=== PATIENT | female | born 1995 | race Two or more races ===

== ENCOUNTER 2016-11-30 23:50 | Inpatient (IN) | payer SELFPAY ==
[~2016-11-30] VITALS: Ht 154.9 cm; Wt 78.9 kg
[~2016-11-30 23:50] MED LIST: PREN27TA7 OR
[2016-12-01] MEDS ORDERED: PENICILLIN G POT 5MIL/D5 50ML 50 ML IV ONE (00:34)
[2016-12-01] MEDS ORDERED: LACT. RINGERS/OXYTOCIN 20UNITS 1,000 ML IV SCH (00:44)
[2016-12-01] MEDS ORDERED: DERMOPLAST 60ML BOTTLE TOP PRN (00:45)
[2016-12-01] MEDS ORDERED: METHYLERGONOVINE MALEATE 0.2 MG/ML AMP IM PRN (00:45)
[2016-12-01] MEDS ORDERED: WITCH HAZEL-GLYCERIN PAD TOP PRN (00:45)
[2016-12-01] MEDS ORDERED: PHISODERM TOP SOLN 240ML BTL TOP PRN (00:45)
[2016-12-01] MEDS ORDERED: LIDOCAINE 1% HCL (LOCAL ANESTH.) INJ 20ML MDV IJ ONE (00:45)
[2016-12-01] MEDS ORDERED: LIDOCAINE 2%HCL (LOCAL ANESTH.) INJ 20ML MDV ONE (00:50)
[2016-12-01] MEDS ORDERED: WITCH HAZEL-GLYCERIN PAD TOP ONE (00:50)
[2016-12-01] MEDS ORDERED: PHISODERM TOP SOLN 240ML BTL TOP ONE (00:50)
[2016-12-01] MEDS ORDERED: DERMOPLAST 60ML BOTTLE TOP ONE (00:50)
[2016-12-01] MEDS ORDERED: LACT. RINGERS/OXYTOCIN 20UNITS 1,000 ML IV ONE (00:50)
[2016-12-01] MEDS ORDERED: METHYLERGONOVINE MALEATE 0.2 MG/ML AMP IM ONE (00:51)
[2016-12-01 01:19] LABS: Basophils # (auto) 0 uL; Basophils % (auto) 0.2 % (0.0-2.0); CONDITION Y; DEFINITIVE SEE PRINTOUT; Eosinophils # (auto) 0 uL; Eosinophils % (auto) 0.2 % (0.0-7.0); Hematocrit 33.5 % (36.0-46.0); Lymphocytes # (auto) 3.5 uL; Lymphocytes % (auto) 30.4 % (10.0-50.0); Mean Corpuscular Hemoglobin 24.1 pg (28.0-32.0); Mean Corpuscular Hgb Conc. 32.7 g/dL (32.0-36.0); Mean Corpuscular Volume 73.8 fL (80.0-100.0); Mean Platelet Volume 8.6 fL (7.4-10.4); Monocytes # (auto) 0.7 uL; Monocytes % (auto) 5.9 % (0.0-12.0); Neutrophils # (auto) 7.2 uL; Neutrophils % (auto) 63.3 % (37.0-80.0); Platelet Count (auto) 296 10^3/uL (140-450); Red Cell Distribution Width 16.4 % (11.6-16.0); White Blood Cell 11.4 10^3/uL (4.4-10.8)
[2016-12-01 01:29] LABS: INR 0.91 (0.9-1.15); Partial Thromboplastin Time 26.8 sec (22.64-33.71); Prothrombin Time 9.9 sec (9.37-12.3)
[2016-12-01 01:31] LABS: Albumin 2.6 g/dL (3.4-5.0); BUN/Creatinine Ratio 13.6; Potassium 3.8 mmol/L (3.5-5.1)
[2016-12-01 01:34] LABS: Bilirubin, Total 0.4 mg/dL (0.2-1.0); Total Protein 7.3 g/dL (6.4-8.2)
[2016-12-01] MEDS ORDERED: IBUPROFEN 600 MG TAB PO ONE (02:26)
[2016-12-01] MEDS ORDERED: LACT. RINGERS/OXYTOCIN 20UNITS 500 ML IV ONE (02:28)
[2016-12-01] MEDS: LACTATED RINGER'S 1,000 ML IV SCH ×3 (03:39→16:44)
[2016-12-01] MEDS: PENICILLIN G POTASSIUM 2,500,000 UNITS in D5W 5% 50 ML IV SCH ×4 (04:45→16:45)
[2016-12-01 08:00] VITALS: BP 109/53
[2016-12-01 12:00] VITALS: BP 100/67
[2016-12-01] MEDS: IBUPROFEN 600 MG TAB PO PRN ×2 (12:47→20:06)
[2016-12-01 16:03] VITALS: BP 106/59
[2016-12-01 19:45] VITALS: BP 112/80
[2016-12-01] MEDS ORDERED: ACETAMINOPHEN 325 MG TAB PO ONE (23:13)
[2016-12-01] MEDS ORDERED: ACETAMINOPHEN 650 mg PER 20 mL UD GT PRN (23:15)
[2016-12-01 23:30] VITALS: BP 98/53
[2016-12-02] MEDS ORDERED: ACETAMINOPHEN 325 MG TAB PO PRN
[2016-12-02 02:55] VITALS: BP 98/53
[2016-12-02 08:08] VITALS: BP 93/53
[2016-12-02 12:15] VITALS: BP 96/60
== END 2016-12-02 13:05 | disposition home or self-care (01) | DRG 775 ==
LOC: LDRP 23:50 → OBSVTOIN 23:51 → LDRP 12-01 00:14
PROVIDERS: ADMIT Obstetrics & Gynecology; ATTEND Obstetrics & Gynecology
PROC: 10E0XZZ Delivery of Products of Conception, External Approach (ICD-10-PCS; principal; 2016-12-01)
PROC: 0UQMXZZ Repair Vulva, External Approach (ICD-10-PCS; 2016-12-01)
PROC: 10907ZC Drainage of Amniotic Fluid, Therapeutic from Products of Conception, Via Natural or Artificial Opening (ICD-10-PCS; 2016-12-01)
DX: O70.0 First degree perineal laceration during delivery (principal); Z37.0 Single live birth; Z3A.40 40 weeks gestation of pregnancy
CPT/HCPCS: 36415; 59025; 59409; 80053; 81002; 85025; 85610; 85730; 86850; 86900; 86901; 96361; 96366; G0378; J2540; J2590; J7060

== ENCOUNTER 2017-04-15 03:11 | Emergency (ER) | payer MEDICAID ==
[~2017-04-15] VITALS: Ht 157.5 cm; Wt 73.9 kg
[2017-04-15 04:08] LABS: Basophils # (auto) 0 uL; Basophils % (auto) 0.2 % (0.0-2.0); Eosinophils # (auto) 0.1 uL; Eosinophils % (auto) 1.1 % (0.0-7.0); Hematocrit 38.4 % (36.0-46.0); Hemoglobin 12.6 g/dL (12.2-16.2); Lymphocytes # (auto) 4.6 uL; Lymphocytes % (auto) 41.5 % (10.0-50.0); Mean Corpuscular Hemoglobin 27.4 pg (28.0-32.0); Mean Corpuscular Hgb Conc. 32.9 g/dL (32.0-36.0); Mean Corpuscular Volume 83.5 fL (80.0-100.0); Mean Platelet Volume 7.7 fL (6.9-10.8); Monocytes # (auto) 0.7 uL; Monocytes % (auto) 6.5 % (0.0-12.0); Neutrophils # (auto) 5.6 uL; Neutrophils % (auto) 50.7 % (37.0-80.0); Nucleated Red Blood Cells % 0.2 %; Platelet Count (auto) 279 10^3/uL (140-450); Red Cell Distribution Width 13.1 % (11.8-14.3); White Blood Cell 11.1 10^3/uL (4.4-10.8)
[2017-04-15 04:28] LABS: Anion Gap 11 (5-15); BUN/Creatinine Ratio 18.4; Blood Urea Nitrogen 16 mg/dL (7-18); Calcium 8.7 mg/dL (8.5-10.1); Carbon Dioxide 23 mmol/L (21-32); Chloride 106 mmol/L (98-107); GFR African American 106 mL/min; GFR Non-African American 87 mL/min; Glucose 151 mg/dL (74-106); Potassium 3.2 mmol/L (3.5-5.1); Sodium 140 mmol/L (136-145)
[2017-04-15 04:35] LABS: Acetaminophen < 2.0 ug/mL (10-30); Salicylate < 1.7 mg/dL (2.8-20.0)
[2017-04-15 08:39] VITALS: BP 119/74
== END 2017-04-15 12:31 | disposition left against medical advice (07) ==
LOC: ER 03:17
DX: F12.10 Cannabis abuse, uncomplicated (principal); Z53.21 Procedure and treatment not carried out due to patient leaving prior to being seen by health care provider
CPT/HCPCS: 36415; 80048; 80320; 80329; 84702; 85025

== ENCOUNTER 2017-11-29 23:03 | Emergency (ER) | payer MEDICAID ==
[~2017-11-29] VITALS: Ht 154.9 cm; Wt 71.8 kg
[2017-11-29 23:56] LABS: Basophils # (auto) 0 uL; Basophils % (auto) 0.1 % (0.0-2.0); Eosinophils # (auto) 0.2 uL; Eosinophils % (auto) 1.9 % (0.0-7.0); Hemoglobin 12.2 g/dL (12.2-16.2); Lymphocytes # (auto) 3.5 uL; Lymphocytes % (auto) 34.2 % (10.0-50.0); Mean Corpuscular Hemoglobin 28.4 pg (28.0-32.0); Mean Corpuscular Hgb Conc. 33.9 g/dL (32.0-36.0); Monocytes # (auto) 0.6 uL; Monocytes % (auto) 5.7 % (0.0-12.0); Neutrophils % (auto) 58.1 % (37.0-80.0); Platelet Count (auto) 235 10^3/uL (140-450); Red Blood Cells 4.29 10^6/uL (4.0-5.20); Red Cell Distribution Width 14.4 % (11.8-14.3); White Blood Cell 10.4 10^3/uL (4.4-10.8)
[2017-11-30 00:14] LABS: Alanine Aminotransferase 8 U/L (13-56); Albumin 2.9 g/dL (3.4-5.0); Anion Gap 10 (5-15); Aspartate Aminotransferase 12 U/L (15-37); BUN/Creatinine Ratio 12.5; Blood Urea Nitrogen 8 mg/dL (7-18); Calcium 8.5 mg/dL (8.5-10.1); Carbon Dioxide 22 mmol/L (21-32); Chloride 107 mmol/L (98-107); GFR African American 151 mL/min; GFR Non-African American 125 mL/min; Glucose 105 mg/dL (74-106); Magnesium 1.9 mg/dL (1.6-2.6); Potassium 3.9 mmol/L (3.5-5.1); Sodium 139 mmol/L (136-145)
[2017-11-30 00:19] LABS: Alkaline Phosphatase 59 U/L (45-117); Bilirubin, Total 0.2 mg/dL (0.2-1.0); Total Protein 7.4 g/dL (6.4-8.2)
[2017-11-30 06:07] VITALS: BP 92/41
== END 2017-11-30 06:53 | disposition home or self-care (01) ==
LOC: ER 23:06
DX: O26.892 Other specified pregnancy related conditions, second trimester (principal); F45.8 Other somatoform disorders; Z3A.16 16 weeks gestation of pregnancy
CPT/HCPCS: 36415; 36600; 80053; 82805; 83735; 84484; 84702; 85025; 93005

== ENCOUNTER 2018-04-14 10:55 | Observation (INO) | payer MEDICAID ==
[~2018-04-14] VITALS: Ht 157.5 cm; Wt 77.6 kg
[2018-04-14] MEDS ORDERED: LACTATED RINGER'S 1,000 ML IV SCH (11:46)
[2018-04-14] MEDS ORDERED: LACT. RINGERS/OXYTOCIN 20UNITS 1,000 ML IV SCH (11:46)
[2018-04-14] MEDS ORDERED: LIDOCAINE 2%HCL (LOCAL ANESTH.) INJ 20ML MDV ONE (11:54)
[2018-04-14] MEDS ORDERED: LACT. RINGERS/OXYTOCIN 20UNITS 1,000 ML IV ONE (11:55)
[2018-04-14] MEDS ORDERED: DERMOPLAST 60ML BOTTLE TOP PRN (12:00)
[2018-04-14] MEDS ORDERED: WITCH HAZEL-GLYCERIN PAD TOP PRN (12:00)
[2018-04-14] MEDS ORDERED: METHYLERGONOVINE MALEATE 0.2 MG/ML AMP IM PRN (12:00)
[2018-04-14] MEDS ORDERED: PHISODERM TOP SOLN 240ML BTL TOP PRN (12:00)
[2018-04-14] MEDS ORDERED: LIDOCAINE 2%HCL (LOCAL ANESTH.) INJ 20ML MDV ID ONE (12:00)
[2018-04-14] MEDS ORDERED: NALBUPHINE HCL 10 MG/1ml INJECTION IV PRN (12:00)
[2018-04-14] MEDS: IBUPROFEN 600 MG TAB PO PRN ×2 (12:42→19:40)
[2018-04-14 12:58] LABS: Basophils # (auto) 0 uL; Eosinophils # (auto) 0 uL; Hemoglobin 10.9 g/dL (12.2-16.2); Mean Corpuscular Volume 72.8 fL (80.0-100.0); Monocytes # (auto) 0.5 uL; Monocytes % (auto) 4.4 % (0.0-12.0)
[2018-04-14 13:00] LABS: Basophils % (auto) 0.2 % (0.0-2.0); Eosinophils % (auto) 0.1 % (0.0-7.0); Hematocrit 34.9 % (36.0-46.0); Lymphocytes # (auto) 2.2 uL; Lymphocytes % (auto) 21.1 % (10.0-50.0); Mean Corpuscular Hemoglobin 22.7 pg (28.0-32.0); Mean Corpuscular Hgb Conc. 31.2 g/dL (32.0-36.0); Neutrophils # (auto) 7.6 uL; Neutrophils % (auto) 74.2 % (37.0-80.0); Nucleated Red Blood Cells % 0.1 %; Platelet Count (auto) 223 10^3/uL (140-450); Red Cell Distribution Width 16.9 % (11.8-14.3); White Blood Cell 10.2 10^3/uL (4.4-10.8)
[2018-04-14 13:04] LABS: Albumin 2.6 g/dL (3.4-5.0); Calcium 8.1 mg/dL (8.5-10.1); Potassium 3.8 mmol/L (3.5-5.1)
[2018-04-14 13:07] LABS: BUN/Creatinine Ratio 14.3; Bilirubin, Total 0.2 mg/dL (0.2-1.0); Total Protein 6.7 g/dL (6.4-8.2)
[2018-04-14 13:12] LABS: INR 0.88 (0.9-1.15); Partial Thromboplastin Time 26.3 sec (23.78-33.04); Prothrombin Time 9.5 sec (9.27-12.13)
[2018-04-14 15:02] VITALS: BP 115/55
[2018-04-14 19:10] VITALS: BP 103/52
[2018-04-14 22:52] VITALS: BP 101/52
[2018-04-15 02:53] VITALS: BP 117/56
[2018-04-15 06:42] VITALS: BP 108/63
[2018-04-15] MEDS: IBUPROFEN 600 MG TAB PO PRN ×2 (07:53→13:26)
[2018-04-15 11:00] VITALS: BP 108/53
[2018-04-15 15:30] VITALS: BP 111/70
== END 2018-04-15 16:05 | disposition home or self-care (01) | DRG 560 ==
LOC: LDRP 10:55
PROVIDERS: ADMIT Specialist; ATTEND Specialist
DX: O80 Encounter for full-term uncomplicated delivery (principal); Z37.0 Single live birth
CPT/HCPCS: 36415; 59025; 80053; 81002; 85025; 85610; 85730; 86850; 86900; 86901; G0378; J2590; 59409; 96365; 96366

== ENCOUNTER 2018-08-23 15:43 | Emergency (ER) | payer MEDICAID ==
[~2018-08-23] VITALS: Ht 154.9 cm; Wt 68.0 kg
[2018-08-23 17:00] VITALS: BP 90/71
== END 2018-08-23 18:19 | disposition home or self-care (01) ==
LOC: ER 15:51
DX: F41.1 Generalized anxiety disorder (principal)

== ENCOUNTER 2018-08-26 17:15 | Emergency (ER) | payer MEDICAID ==
[~2018-08-26] VITALS: Ht 154.9 cm; Wt 71.7 kg
[2018-08-26 18:47] VITALS: BP 136/59
[2018-08-26 20:16] LABS: Basophils # (auto) 0 uL; Basophils % (auto) 0.2 % (0.0-2.0); Eosinophils # (auto) 0 uL; Hematocrit 39.4 % (36.0-46.0); Hemoglobin 12.9 g/dL (12.2-16.2); Lymphocytes # (auto) 2.4 uL; Mean Corpuscular Hemoglobin 27.5 pg (28.0-32.0); Mean Corpuscular Hgb Conc. 32.8 g/dL (32.0-36.0); Mean Corpuscular Volume 83.7 fL (80.0-100.0); Monocytes # (auto) 0.3 uL; Monocytes % (auto) 3.8 % (0.0-12.0); Neutrophils # (auto) 6.3 uL; Nucleated Red Blood Cells % 0.1 %; Platelet Count (auto) 299 10^3/uL (140-450); Red Blood Cells 4.71 10^6/uL (4.0-5.20); Red Cell Distribution Width 13.3 % (11.8-14.3); White Blood Cell 9.1 10^3/uL (4.4-10.8)
[2018-08-26 20:32] LABS: Urine Pregnacy Test Negative (Negative)
[2018-08-26 20:36] LABS: Urine Bacteria NONE SEEN /hpf (None Seen); Urine Blood Negative /uL (Negative); Urine Mucus FEW (None Seen); Urine WBC 16 /hpf (0 - 5)
[2018-08-26 20:37] LABS: Albumin 4.2 g/dL (3.4-5.0); Anion Gap 8 (5-15); Blood Alcohol < 3.0 mg/dL (0-5); Blood Urea Nitrogen 11 mg/dL (7-18); CRP High Sensitivity 0.08 mg/dL (< 0.3); Calcium 9.3 mg/dL (8.5-10.1); Carbon Dioxide 25 mmol/L (21-32); Chloride 107 mmol/L (98-107); Glucose 92 mg/dL (74-106); Magnesium 2.4 mg/dL (1.6-2.6); Potassium 3.8 mmol/L (3.5-5.1); Sodium 140 mmol/L (136-145)
[2018-08-26 20:39] LABS: Alcohol, Urine < 3.0 mg/dL (0-5); Amphetamine Screen, Urine NEGATIVE (NEGATIVE); Barbiturate Scree,Urine NEGATIVE (NEGATIVE); Benzodiazephine Screen, Urine NEGATIVE (NEGATIVE); Cannabinoid Screen, Urine NEGATIVE (NEGATIVE); Cocaine Screen, Urine NEGATIVE (NEGATIVE); Opiate Scree,Urine NEGATIVE (NEGATIVE); Phencyclidine Screen, Urine NEGATIVE (NEGATIVE)
[2018-08-26 20:43] LABS: Alanine Aminotransferase 13 U/L (13-56); Alkaline Phosphatase 84 U/L (45-117); Aspartate Aminotransferase 18 U/L (15-37); BUN/Creatinine Ratio 15.9; Bilirubin, Total 0.5 mg/dL (0.2-1.0); GFR African American 137 mL/min; GFR Non-African American 113 mL/min; Total Protein 8.3 g/dL (6.4-8.2)
== END 2018-08-26 22:49 | disposition home or self-care (01) ==
LOC: ER 17:21
DX: F41.9 Anxiety disorder, unspecified (principal); N39.0 Urinary tract infection, site not specified; J30.2 Other seasonal allergic rhinitis; M79.10 Myalgia, unspecified site; R20.0 Anesthesia of skin; M54.2 Cervicalgia
CPT/HCPCS: 36415; 70450; 72125; 80053; 80307; 80320; 81001; 81025; 83735; 84484; 85025; 86141

== ENCOUNTER 2018-10-19 16:31 | Emergency (ER) | payer MEDICAID ==
[~2018-10-19] VITALS: Ht 154.9 cm; Wt 71.2 kg
[2018-10-19 18:13] LABS: Basophils # (auto) 0 uL; Basophils % (auto) 0.2 % (0.0-2.0); Eosinophils # (auto) 0.1 uL; Eosinophils % (auto) 0.8 % (0.0-7.0); Hematocrit 40.3 % (36.0-46.0); Hemoglobin 13.3 g/dL (12.2-16.2); Lymphocytes % (auto) 33.6 % (10.0-50.0); Monocytes # (auto) 0.6 uL; Monocytes % (auto) 6.6 % (0.0-12.0); Neutrophils # (auto) 5.3 uL; Neutrophils % (auto) 58.8 % (37.0-80.0); Nucleated Red Blood Cells % 0.1 %; Platelet Count (auto) 255 10^3/uL (140-450); Red Blood Cells 4.92 10^6/uL (4.0-5.20); Red Cell Distribution Width 13.2 % (11.8-14.3); White Blood Cell 8.9 10^3/uL (4.4-10.8)
[2018-10-19 18:33] LABS: Urine Bacteria FEW /hpf (None Seen); Urine Blood 1+ /uL (Negative); Urine Mucus FEW (None Seen); Urine Specific Gravity 1.028 (1.001-1.035); Urine WBC 7 /hpf (0 - 5)
[2018-10-19 18:39] LABS: Alanine Aminotransferase 11 U/L (13-56); Anion Gap 8 (5-15); Aspartate Aminotransferase 15 U/L (15-37); BUN/Creatinine Ratio 11.5; Blood Urea Nitrogen 11 mg/dL (7-18); Calcium 8.8 mg/dL (8.5-10.1); Carbon Dioxide 24 mmol/L (21-32); Chloride 109 mmol/L (98-107); GFR African American 93 mL/min; GFR Non-African American 77 mL/min; Glucose 111 mg/dL (74-106); Potassium 4.2 mmol/L (3.5-5.1); Sodium 141 mmol/L (136-145)
[2018-10-19 18:43] LABS: Alkaline Phosphatase 73 U/L (45-117); Bilirubin, Total 0.5 mg/dL (0.2-1.0); Total Protein 8.2 g/dL (6.4-8.2)
[2018-10-19 21:42] VITALS: BP 128/73
[2018-10-19] MEDS ORDERED: ALBUTEROL SULF 2.5 MG/0.5ML(0.5%) NEB SOLN NEB ONE (21:45)
[2018-10-19] MEDS ORDERED: IPRATROPIUM BROM 0.5 MG/2.5ML INH SOL NEB ONE (21:45)
== END 2018-10-19 22:20 | disposition home or self-care (01) ==
LOC: ER 16:31
DX: J45.901 Unspecified asthma with (acute) exacerbation (principal); J01.00 Acute maxillary sinusitis, unspecified; F41.9 Anxiety disorder, unspecified; Z79.899 Other long term (current) drug therapy
CPT/HCPCS: 36415; 71046; 80053; 81001; 81025; 84484; 85025; 93005; 94640; 99284; J7611; J7644

== ENCOUNTER 2020-02-02 16:00 | Observation (INO) | payer MEDICAID ==
[~2020-02-02] VITALS: Ht 154.9 cm; Wt 69.9 kg
== END 2020-02-02 19:41 | disposition left against medical advice (07) ==
LOC: LDRP 16:00
PROVIDERS: ADMIT Specialist; ATTEND Specialist
DX: O62.9 Abnormality of forces of labor, unspecified (principal); Z20.828 Contact with and (suspected) exposure to other viral communicable diseases; Z3A.38 38 weeks gestation of pregnancy
CPT/HCPCS: 36415; 59025; 81002; 87426; G0378; U0003

== ENCOUNTER 2020-02-08 06:15 | Inpatient (IN) | payer MEDICAID ==
[~2020-02-08] VITALS: Ht 154.9 cm; Wt 69.9 kg
[2020-02-08] MEDS ORDERED: BUTORPHANOL TARTRATE 2 MG/1 ML VIAL IV PRN (06:45)
[2020-02-08] MEDS ORDERED: PHISODERM TOP SOLN 240ML BTL TOP PRN (06:45)
[2020-02-08] MEDS ORDERED: DERMOPLAST 60ML BOTTLE TOP PRN (06:45)
[2020-02-08] MEDS ORDERED: LIDOCAINE 2%HCL (LOCAL ANESTH.) INJ 20ML MDV IJ ONE (06:45)
[2020-02-08] MEDS ORDERED: LACT. RINGERS/OXYTOCIN 20UNITS 1,000 ML IV SCH ×2 (06:45→09:00)
[2020-02-08] MEDS ORDERED: WITCH HAZEL-GLYCERIN PAD TOP PRN (06:45)
[2020-02-08] MEDS ORDERED: LACTATED RINGER'S 1,000 ML IV SCH (06:45)
[2020-02-08 07:26] LABS: Basophils # (auto) 0 10 ^3/uL (0-0.2); Basophils % (auto) 0.2 % (0.0-2.0); Eosinophils # (auto) 0 10 ^3/uL (0-0.8); Eosinophils % (auto) 0.2 % (0.0-7.0); Hematocrit 42.7 % (36.0-46.0); Hemoglobin 14.2 g/dL (12.2-16.2); Lymphocytes # (auto) 2.9 10 ^3/uL (0.4-5.4); Lymphocytes % (auto) 17.4 % (10.0-50.0); Mean Corpuscular Hemoglobin 30.4 pg (28.0-32.0); Mean Corpuscular Hgb Conc. 33.3 g/dL (32.0-36.0); Mean Corpuscular Volume 91.1 fL (80.0-100.0); Monocytes # (auto) 0.7 10 ^3/uL (0-1.3); Neutrophils # (auto) 13.2 10 ^3/uL (1.6-8.6); Neutrophils % (auto) 78.2 % (37.0-80.0); Nucleated Red Blood Cells % 0.1 %; Platelet Count (auto) 181 10^3/uL (140-450); Red Blood Cells 4.69 10^6/uL (4.0-5.20); Red Cell Distribution Width 13.3 % (11.8-14.3); White Blood Cell 16.9 10^3/uL (4.4-10.8)
[2020-02-08 07:40] LABS: Albumin 3.1 g/dL (3.4-5.0); Calcium 8.7 mg/dL (8.5-10.1); Potassium 3.1 mmol/L (3.5-5.1)
[2020-02-08 07:41] LABS: INR 0.92 (0.9-1.15); Partial Thromboplastin Time 27.8 sec (23.0-31.2)
[2020-02-08 07:45] LABS: BUN/Creatinine Ratio 12.7; Bilirubin, Total 0.5 mg/dL (0.2-1.0); Total Protein 7.4 g/dL (6.4-8.2)
[2020-02-08] MEDS ORDERED: LACT. RINGERS/OXYTOCIN 20UNITS 1,000 ML IV ONE (08:00)
[2020-02-08] MEDS: IBUPROFEN 600 MG TAB PO PRN ×3 (08:16→15:28)
[2020-02-08 11:20] VITALS: BP 110/53
[2020-02-08 15:00] VITALS: BP 91/51
[2020-02-08 22:55] VITALS: BP 95/54
[2020-02-09 02:56] VITALS: BP 93/44
[2020-02-09] MEDS: IBUPROFEN 600 MG TAB PO PRN ×2 (04:59→11:33)
[2020-02-09 07:00] VITALS: BP 108/63
[2020-02-10 05:10] LABS: RPR Non Reactive (Non Reactive)
== END 2020-02-09 11:35 | disposition home or self-care (01) | DRG 560 ==
LOC: LDRP 06:15 → OBSVTOIN 06:16
PROVIDERS: ADMIT Specialist; ATTEND Specialist
PROC: 10E0XZZ Delivery of Products of Conception, External Approach (ICD-10-PCS; principal; 2020-02-08)
DX: O80 Encounter for full-term uncomplicated delivery (principal); Z3A.39 39 weeks gestation of pregnancy; Z37.0 Single live birth
CPT/HCPCS: 36415; 59025; 59409; 80053; 85025; 85610; 85730; 86592; 86850; 86900; 86901; 96360; 96361; 96365; G0378; J2590